=== PATIENT | female | born 2000 | race Native Hawaiian/Other Pacific Islander ===

== ENCOUNTER 2020-05-06 03:15 | Inpatient (IN) | payer MEDICAID ==
[~2020-05-06] VITALS: Ht 170.2 cm; Wt 125.6 kg
[2020-05-06] MEDS ORDERED: LACTATED RINGER'S 1,000 ML IV SCH (03:59)
[2020-05-06] MEDS ORDERED: LACT. RINGERS/OXYTOCIN 20UNITS 1,000 ML IV SCH ×2 (03:59→08:39)
[2020-05-06] MEDS ORDERED: DERMOPLAST 60ML BOTTLE TOP PRN (04:00)
[2020-05-06] MEDS ORDERED: PENICILLIN G POT 5MIL/D5 50ML 50 ML IV ONE (04:00)
[2020-05-06] MEDS ORDERED: LIDOCAINE 2%HCL (LOCAL ANESTH.) INJ 20ML MDV ID ONE (04:00)
[2020-05-06] MEDS ORDERED: PHISODERM TOP SOLN 240ML BTL TOP PRN (04:00)
[2020-05-06] MEDS ORDERED: WITCH HAZEL-GLYCERIN PAD TOP PRN (04:00)
[2020-05-06] MEDS ORDERED: METHYLERGONOVINE MALEATE 0.2 MG/ML AMP IM PRN (04:00)
[2020-05-06 05:16] LABS: Alcohol, Urine < 3.0 mg/dL (0-10); Amphetamine Screen, Urine NEGATIVE (NEGATIVE); Barbiturate Scree,Urine NEGATIVE (NEGATIVE); Benzodiazephine Screen, Urine NEGATIVE (NEGATIVE); Cannabinoid Screen, Urine NEGATIVE (NEGATIVE); Cocaine Screen, Urine NEGATIVE (NEGATIVE); Opiate Scree,Urine NEGATIVE (NEGATIVE); Phencyclidine Screen, Urine NEGATIVE (NEGATIVE)
[2020-05-06 05:17] LABS: Urine Bacteria MANY /hpf (None Seen); Urine Blood TRACE /uL (Negative); Urine Hyaline Cast FEW /lpf (0 - 2); Urine Mucus FEW (None Seen); Urine Specific Gravity 1.017 (1.001-1.035); Urine WBC 3 /hpf (0 - 5)
[2020-05-06 05:44] LABS: Basophils # (auto) 0 10 ^3/uL (0-0.2); Basophils % (auto) 0.1 % (0.0-2.0); Hematocrit 37.8 % (36.0-46.0); Hemoglobin 12.3 g/dL (12.2-16.2); Lymphocytes # (auto) 2.4 10 ^3/uL (0.4-5.4); Lymphocytes % (auto) 16.6 % (10.0-50.0); Nucleated Red Blood Cells % 0.1 %
[2020-05-06 05:45] LABS: Eosinophils # (auto) 0.2 10 ^3/uL (0-0.8); Eosinophils % (auto) 1.1 % (0.0-7.0); Mean Corpuscular Hemoglobin 25.4 pg (28.0-32.0); Mean Corpuscular Hgb Conc. 32.5 g/dL (32.0-36.0); Mean Corpuscular Volume 78.1 fL (80.0-100.0); Monocytes # (auto) 1.1 10 ^3/uL (0-1.3); Monocytes % (auto) 7.9 % (0.0-12.0); Neutrophils # (auto) 10.7 10 ^3/uL (1.6-8.6); Neutrophils % (auto) 74.3 % (37.0-80.0); Platelet Count (auto) 322 10^3/uL (140-450); Red Blood Cells 4.84 10^6/uL (4.0-5.20); Red Cell Distribution Width 14.3 % (11.8-14.3); White Blood Cell 14.4 10^3/uL (4.4-10.8)
[2020-05-06] MEDS ORDERED: BUTORPHANOL TARTRATE 2 MG/1 ML VIAL IV PRN (05:45)
[2020-05-06] MEDS ORDERED: PROMETHAZINE HCL 25 MG/ML 1ML IV PRN (05:45)
[2020-05-06 05:59] LABS: Albumin 2.8 g/dL (3.4-5.0); Calcium 8.3 mg/dL (8.5-10.1); INR 0.9 (0.9-1.15); Potassium 3.6 mmol/L (3.5-5.1)
[2020-05-06 06:02] LABS: BUN/Creatinine Ratio 9.3; Bilirubin, Total 0.2 mg/dL (0.2-1.0); Uric Acid 4.2 mg/dL (2.6-6.0)
[2020-05-06] MEDS ORDERED: LACTATED RINGER'S 1,000 ML IV ONE (06:33)
[2020-05-06] MEDS ORDERED: fentaNYL 400mCg/200ml W ROPIVA 200 ML EPI SCH (06:45)
[2020-05-06] MEDS ORDERED: ePHEDrine SULFATE 50 MG/ML AMP IV PRN (06:45)
[2020-05-06] MEDS ORDERED: LIDOCAINE HCL 2 %PF INJ 10ML AMP IJ ONE (06:45)
[2020-05-06] MEDS ORDERED: NALOXONE HCL 0.4 MG/ML VIAL IV PRN (06:45)
[2020-05-06] MEDS ORDERED: LACT. RINGERS/OXYTOCIN 20UNITS 1,000 ML IV ONE (07:39)
[2020-05-06] MEDS ORDERED: IBUPROFEN 600 MG TAB PO PRN (07:45)
[2020-05-06] MEDS ORDERED: PENICILLIN G POTASSIUM 2,500,000 UNITS in D5W 5% 50 ML IV SCH (08:00)
[2020-05-06] MEDS ORDERED: DOCUSATE CALCIUM 240 MG CAP PO SCH (10:00)
[2020-05-06 11:30] VITALS: BP 153/64
[2020-05-06 15:30] VITALS: BP 112/58
[2020-05-06 18:30] VITALS: BP 135/71
[2020-05-06 23:30] VITALS: BP 132/59
[2020-05-07 03:30] VITALS: BP 152/70
[2020-05-07 06:45] VITALS: BP 112/55
[2020-05-07] MEDS ORDERED: PREN-96 PO (06:49)
[2020-05-07 07:06] LABS: RPR Non Reactive (Non Reactive)
[2020-05-07 10:59] VITALS: BP 142/69
== END 2020-05-07 12:34 | disposition home or self-care (01) | DRG 560 ==
LOC: LDRP 03:15 → OBSVTOIN 03:50 → LDRP 06:00
PROVIDERS: ADMIT Obstetrics & Gynecology; ATTEND Obstetrics & Gynecology
PROC: 10E0XZZ Delivery of Products of Conception, External Approach (ICD-10-PCS; principal; 2020-05-06)
PROC: 0KQM0ZZ Repair Perineum Muscle, Open Approach (ICD-10-PCS; 2020-05-06)
PROC: 0W8NXZZ Division of Female Perineum, External Approach (ICD-10-PCS; 2020-05-06)
DX: O70.1 Second degree perineal laceration during delivery (principal); Z37.0 Single live birth; Z3A.39 39 weeks gestation of pregnancy; Z20.828 Contact with and (suspected) exposure to other viral communicable diseases
CPT/HCPCS: 36415; 59025; 59409; 80053; 80307; 81001; 81002; 84112; 84550; 85025; 85610; 85730; 86592; 86850; 86900; 86901; 87426; 96360; 96361; 96365; 96372; 96374; 96375; G0378; J2540; J2590; J7060

== ENCOUNTER 2025-07-13 16:19 | Emergency (ER) | payer MEDICAID ==
[~2025-07-13] VITALS: Ht 170.2 cm; Wt 138.3 kg
[~2025-07-13 16:19] MED LIST: PREN-96 PO
[2025-07-13] MEDS: SODIUM CHLORIDE 0.9% 500 ML IV ONE (16:30)
[2025-07-13] MEDS: SODIUM CHLORIDE 0.9% 1,000 ML IVB ONE (16:30)
--- NOTE | 2025-07-13 16:35 | ED.PDOC ---
[employer] HPI Comments This is a 25 year old female presenting to the ED with chief complaint of vaginal bleeding. Patient reports that she has been experiencing vaginal bleeding with associated clots being passed for the past 13 days, longer than her usual menstrual cycles. Patient relays that she is . Patient denies any N/V, abdominal pain, chest pain, SOB, dizziness, lightheadedness, or syncope. Chief Complaint: Vaginal Bleed Time Seen by MD: 16:33 Reviewed Notes: Nurses Notes, Medications, Allergies Allergies: Coded Allergies: NO KNOWN ALLERGIES (Unverified , 04/29/12) Home Meds Active Scripts Nitrofurantoin Monohydrate Mac (Macrobid) 100 Mg Cap, 100 MG PO BID for 7 Days, #14 CAP Prov:ROCIO HDZ MD 07/13/25 Reported Medications Vit W/ Ferrous Fumara ( One Daily) Daily Tab, 1 TAB PO DAILY, #90 TAB 3 Refills 05/07/20 Information Source: Patient Mode of Arrival: Ambulatory Timing: Weeks Prehospital treatment: None Severity: Moderate Bleeding Quality: Bright Red, Clotted Onset Of Mass/Bleeding: Spontaneous, Menstrual Sexual Activity: Sexually Active Last Consensual [place]: Unknown Associated Signs and Symptoms: Vaginal Bleeding Past Medical History PAST MEDICAL HISTORY: Denies Surgical History: Denies all surgeries [employer] TECHNICIAN History: No Pertinent [employer] TECHNICIAN History 2 Para 2 Family History Family History: Reviewed,noncontributory to illness Social History Smoker: Non-Smoker Alcohol: Denies ETOH Use Drugs: Denies Drug Use Lives In: Home Constitutional: denies: chills, diaphoresis, fatigue, fever, malaise, sweats, weakness, others EENTM: denies: blurred vision, double vision, ear bleeding, ear discharge, ear drainage, ear pain, ear ringing, eye pain, eye redness, hearing loss, mouth pain, mouth swelling, nasal discharge, nose bleeding, nose congestion, nose pain, photophobia, tearing, throat pain, throat swelling, voice changes, others Respiratory: denies: cough, hemoptysis, orthopnea, SOB at rest, shortness of b reath, SOB with excertion, stridor, wheezing, others Cardiovascular: denies: chest pain, dizzy spells, diaphoresis, Dyspnea on exertion, edema, irregular heart beat, left arm pain, lightheadedness, palpitations, PND, syncope, others Gastrointestinal: denies: abdomen distended, abdominal pain, blood streaked bowels, constipated, diarrhea, dysphagia, difficulty swallowing, hematemesis, melena, nausea, poor appetite, poor fluid intake, rectal bleeding, rectal pain, vomiting, others Genitourinary: reports: abnormal vagina bleeding; denies: burning, dyspareunia, dysuria, flank pain, frequency, hematuria, incontinence, pain, , vagina discharge, urgency, others Neurological: denies: dizziness, fainting, headache, left sided numbness, left sided weakness, numbness, paresthesia, pre-existing deficit, right sided numbness, right sided weakness, seizure, speech problems, tingling, tremors, weakness, others Musculoskeletal: denies: back pain, gout, joint pain, joint swelling, muscle pain, muscle stiffness, neck pain, others Integumetry: denies: bruises, change in color, change in hair/nails, dryness, laceration, lesions, lumps, rash, wounds, others Allergic/Immunocompromised: denies: Difficulty Healing, Frequent Infections, Hives, Itching, others Hematologic/Lymphatic: denies: anemia, blood clots, easy bleeding, easy brui sing, swollen glands, others Endocrine: denies: excessive hunger, excessive sweating, excessive thirst, ex cessive urination, flushing, intolerance to cold, intolerance to heat, unexplained weight gain, unexplained weight loss, others Psychiatric: denies: anxiety, bipolar disorder, depression, hopeless, panic disorder, schizophrenia, sleepless, suicidal, others All Other Systems: Reviewed and Negative Physical Exam General Appearance: Moderate Distress, Normal HEENT: Normal ENT Inspection, Pharynx Normal, TMs Normal Neck: Full Range of Motion, Non-Tender, Normal, Normal Inspection Respiratory: Chest Non-Tender, Lungs Clear, No Accessory Muscle Use, No Respiratory Distress, Normal Breath Sounds Cardiovascular: No Edema, No JVD, No Murmur, No Gallop, Normal Peripheral Pulses, Regular Rate/Rhythm Breast Exam: Deferred Gastrointestinal: No Organomegaly, Non Tender, No Pulsatile Mass, Normal Bowel Sounds, Soft Genitalia: Deferred Pelvic: Deferred Rectal: Deferred Extremities: No calf tenderness, Normal capillary refill, Normal inspection, Normal range of motion, Non-tender, No pedal edema Musculoskeletal : Apperance: Normal Neurologic: Alert, 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 Was a procedure done?: No Differential Diagnosis ([employer] TECHNICIAN) Vaginal Bleeding: Menorrhagia, Menstrual Bleeding X-Ray, Labs, Meds, VS Vital Signs Date Time Temp Pulse Resp B/P (MAP) Pulse Ox O2 Delivery O2 Flow Rate FiO2 07/13/25 16:22 98.2 152 18 166/94 99 98.2 Lab Test 07/13/25 17:08 Range/Units White Blood Count Pending Red Blood Count Pending Hemoglobin Pending Hematocrit Pending Mean Corpuscular Volume Pending Mean Corpuscular Hemoglobin Pending Mean Corpuscular Hemoglobin Concent Pending Red Cell Distribution Width Pending Platelet Count Pending Mean Platelet Volume Pending Neutrophils (%) (Auto) Pending Lymphocytes (%) (Auto) Pending Monocytes (%) (Auto) Pending Basophils (%) (Auto) Pending Neutrophils # (Auto) Pending Lymphocytes # (Auto) Pending Monocytes # (Auto) Pending Patient alert. Complaining of vaginal bleeding. Blood pressure slightly elevated. Vitals stable. Answering questions. Possible fibroid. Establish intravenous access. Was given fluids. Spoke with OBGYN. Was given prescription of Macrobid antibiotic. Explained to the patient. Was told to follow up with her primary care physician. Was told to come back if there is any problem. Time of 1ST Reevaluation: 17:32 Reevaluation 1ST: Unchanged Patient Education/Counseling: Diagnosis, Treatment Family Education/Counseling: No Family Present Departure 1 Departure Time of Disposition: 16:37 Impression: Primary Impression: Hypertensive urgency Additional Impression: Vaginal bleeding Disposition: 30 STILL A PATIENT Condition: Good e-Prescriptions Nitrofurantoin Monohydrate Mac (Macrobid) 100 Mg Cap 100 MG PO BID for 7 Days, #14 CAP Prov: ROCIO HDZ MD 07/13/25 Discharged With: Self Critical Care Note Critical Care Time?: No Stability Stability form required: No Heart Score Heart Score: Heart Score Response (Comments) Value History N/A 0 EKG N/A 0 Age N/A 0 Risk Factors N/A 0 Troponin N/A 0 Total 0 I personally scribed for ROCIO HDZ MD ([email or web address]) on 07/13/25 at 16:34. Electronically submitted by Boaz Kim ([email or web address]). ROCIO HDZ MD Jul 13, 2025 16:34
[2025-07-13 17:05] VITALS: TEMP 97.5
--- NOTE | 2025-07-13 17:11 | DVH ---
Pelvic ultrasound HISTORY: fibroid Technique: 2-D real-time ultrasound was performed with sagittal and axial images submitted for evaluation. Images were obtained transabdominally and transvaginally. FINDINGS: Uterus measures 7.9 x 4.8 x 4.7 cm with an endometrial thickness of 6.4 mm. There is a tiny 1 x 2 mm hyperechoic lesion at the junction of the endometrium and submucosal layer of the anterior uterine wall Small nabothian cyst is present Right ovary 2.7 x 2.3 x 1.7 cm with a simple cyst measuring 1.5 x 1.6 cm cm. Left ovary not visualized No free fluid in the cul-de-sac IMPRESSION: 1. Normal endometrial thickness for age. There is a tiny echogenic structure at the junction of the endometrium and submucosal layers without shadowing. Question of prior IUD or instrumentation 2. There is a involuting simple cyst of the right ovary as described
[2025-07-13 17:34] LABS: Hematocrit 36.5 % (36.0-46.0)
[2025-07-13 17:35] LABS: Hemoglobin 12.1 g/dL (12.2-16.2); Mean Corpuscular Hemoglobin 25.7 pg (28.0-32.0); Mean Corpuscular Volume 77.4 fL (80.0-100.0); Nucleated Red Blood Cells % 0.2 %
[2025-07-13] MEDS ORDERED: NITR-87 PO (17:36)
[2025-07-13 19:00] VITALS: BP 120/80; PULSE 98; RESP 18; O2SAT 100
== END 2025-07-13 22:10 | disposition home or self-care (01) ==
LOC: ER 16:19
DX: I16.0 Hypertensive urgency (principal); N93.9 Abnormal uterine and vaginal bleeding, unspecified; Z79.899 Other long term (current) drug therapy
CPT/HCPCS: 36415; 76830; 76856; 85025; 96360; 99284; J7030; J7040